=== PATIENT | male | born 1990 | race African-American/Black ===

== ENCOUNTER 2017-04-11 17:12 | Emergency (ER) | payer MEDICAID ==
[~2017-04-11] VITALS: Ht 172.7 cm; Wt 70.0 kg
[2017-04-12] MEDS ORDERED: SODIUM CHLORIDE 0.9% 1,000 ML IV ONE (01:49)
[2017-04-12] MEDS ORDERED: ONDANSETRON HCL 4MG/2ML VIAL IV STA ×2 (01:49→05:54)
[2017-04-12] MEDS ORDERED: MORPHINE SULFATE 4 MG/ML CPJ (NOT FOR IM USE) IV STA ×2 (01:49→05:54)
[2017-04-12 02:28] LABS: BASOPHILS % 0.7 % (0.0-2.0); EOSINOPHILS % 7.1 % (0.0-5.0); HEMATOCRIT. 35.9 % (42.0-52.0); HEMOGLOBIN. 11.8 g/dL (14.0-18.0); LYMPHOCYTES % 50.1 % (20.0-50.0); MEAN CORPUSCULAR HEMOGLOBIN 26.6 pg (28.0-32.0); MEAN PLATELET VOLUME 7.8 fl (7.4-10.4); MONOCYTES % 12.7 % (2.0-8.0); NEUTROPHILS % 29.4 % (40.0-76.0); PLATELET 257 x1000/uL (130-400); RED BLOOD CELL COUNT 4.43 mill/uL (4.7-6.1); RED CELL DISTRIBUTION WIDTH 18.2 % (11.6-14.6)
[2017-04-12 02:29] LABS: CHLORIDE 109 mEq/L (98-107)
[2017-04-12 02:32] LABS: PROTHROMBIN TIME 10.4 sec (9.4-11.6)
[2017-04-12 02:38] LABS: CARBON DIOXIDE 23 mEq/L (21-32)
[2017-04-12 04:29] LABS: CLARITY URINE CLEAR (CLEAR); COLOR URINE YELLOW (YELLOW); KETONES URINE TRACE (NEGATIVE); LEUKOCYTE ESTERASE URINE NEGATIVE (NEGATIVE); NITRITE URINE NEGATIVE (NEGATIVE); OCCULT BLOOD URINE 1+ (NEGATIVE); PROTEIN URINE NEGATIVE (NEGATIVE); SPECIFIC GRAVITY URINE 1.021 (1.005-1.030); UROBILINOGEN URINE 0.2 E.U./dL (0.2-1.0)
[2017-04-12] MEDS ORDERED: IOHEXOL-300 100 ML BOTTLE ONE (05:54)
[2017-04-12 06:16] VITALS: BP 135/88
== END 2017-04-12 08:59 | disposition home or self-care (01) ==
LOC: ER 17:47
DX: R10.84 Generalized abdominal pain (principal); M79.641 Pain in right hand; J45.909 Unspecified asthma, uncomplicated; Z87.19 Personal history of other diseases of the digestive system; Z90.49 Acquired absence of other specified parts of digestive tract; Z88.0 Allergy status to penicillin; Z88.1 Allergy status to other antibiotic agents
CPT/HCPCS: 36415; 73130; 74177; 80053; 81001; 83690; 85025; 85610; 96361; 96374; 96375; 96376; 99285; J2270; J2405; J7030; Q9967; Z7610